=== PATIENT | female | born 1980 | race Caucasian/White ===

== ENCOUNTER 2020-06-26 15:11 | Outpatient (REF) | payer OTHER, SELFPAY | END 2020-06-26 15:12 | disposition home or self-care (01) | LOC: HO.LAB 15:11 | PROVIDERS: Visit Provider Internal Medicine | DX: Z20.828 Contact with and (suspected) exposure to other viral communicable diseases (principal) | CPT/HCPCS: C9803; U0003 ==

== ENCOUNTER 2021-06-11 | Outpatient (REF) | payer OTHER, SELFPAY | END 2021-06-11 00:01 | disposition home or self-care (01) | LOC: HO.LNP | PROVIDERS: Visit Provider Physician Assistant Medical | DX: Z20.822 Contact with and (suspected) exposure to COVID-19 (principal); J01.90 Acute sinusitis, unspecified; R42 Dizziness and giddiness | CPT/HCPCS: U0003; U0005 ==

== ENCOUNTER 2023-02-10 07:53 | Outpatient (REF) | payer OTHER, SELFPAY ==
[2023-02-10 11:41] LABS: MANUAL DIFF FLAG NO
[2023-02-10 11:58] LABS: Eosinophils Absolute Auto 0.1 X10*3/uL (0.0-0.4); Eosinophils Percent Auto 1.5 % (0-4); Hematocrit 34.8 % (37.0-47.0); Hemoglobin 11.5 g/dl (12.0-16.0); Lymphocytes Absolute Auto 1.5 X10*3/uL (1.2-4.9); Lymphocytes Percent Auto 36.1 % (20-40); Mean Corpuscular Hemoglobin 31.1 pg (27.0-33.0); Mean Corpuscular Volume 94.1 fL (80.0-98.0); Mean Platelet Volume 9.9 fL (9.4-12.3); Monocytes Absolute Auto 0.4 X10*3/uL (0.1-1.2); Monocytes Percent Auto 10.8 % (2-11); Neutrophils Absolute Auto 2.1 x10*3/uL (2.0-8.3); Neutrophils Percent Auto 50.6 % (45-73); Platelet Count 271 X10*3/uL (160-400); Red Cell Distribution Width 12.4 % (11.0-16.0); White Blood Count 4.1 X10*3/uL (4.8-10.8)
[2023-02-10 12:21] LABS: Anion Gap 14 (12-20); Blood Urea Nitrogen 14 mg/dL (9-16); Calcium 9.3 mg/dL (8.4-10.2); Carbon Dioxide 24 mmol/L (22-29); Chloride 106 mmol/L (96-108); Cholesterol 210 mg/dL; Estimated Glomerular Filt Rate > 60; Glucose Random 83 mg/dL (60-115); Sodium 140 mmol/L (135-145)
== END 2023-02-10 07:54 | disposition home or self-care (01) ==
LOC: HO.HMGCLDS 07:53
PROVIDERS: PCP Internal Medicine; Visit Provider Internal Medicine
DX: Z00.00 Encounter for general adult medical examination without abnormal findings (principal)
CPT/HCPCS: 36415; 80048; 82465; 85025

== ENCOUNTER 2023-04-29 16:49 | Outpatient (REF) | payer OTHER, SELFPAY ==
[2023-04-29 16:58] LABS: MANUAL DIFF FLAG NO
[2023-04-29 17:30] LABS: Basophils Percent Auto 0.7 % (0-2); Eosinophils Absolute Auto 0.1 X10*3/uL (0.0-0.4); Eosinophils Percent Auto 1.1 % (0-4); Hematocrit 33.7 % (37.0-47.0); Hemoglobin 11.7 g/dl (12.0-16.0); Imm Gran Abs Auto 0.02 X10*3/uL (0.00-0.03); Imm Gran Pct Auto 0.4 % (0.0-0.4); Lymphocytes Absolute Auto 1.9 X10*3/uL (1.2-4.9); Mean Corpuscular HGB Conc 34.7 g/dl (31.0-35.0); Mean Corpuscular Hemoglobin 31.7 pg (27.0-33.0); Mean Corpuscular Volume 91.3 fL (80.0-98.0); Mean Platelet Volume 9.6 fL (9.4-12.3); Monocytes Absolute Auto 0.5 X10*3/uL (0.1-1.2); Monocytes Percent Auto 8.5 % (2-11); Neutrophils Absolute Auto 2.9 x10*3/uL (2.0-8.3); Neutrophils Percent Auto 53.3 % (45-73); Platelet Count 255 X10*3/uL (160-400); Red Blood Count 3.69 X10*6/uL (4.20-5.50); Red Cell Distribution Width 11.6 % (11.0-16.0); White Blood Count 5.4 X10*3/uL (4.8-10.8)
[2023-04-29 18:08] LABS: Iron 88 mcg/dL (30-160); Percent Iron Saturation 34 % (15-50); Total Iron Binding Capacity 260 mcg/dL (228-428); Unsaturated Iron Binding 172 ug/dL
[2023-04-29 18:37] LABS: Vitamin B12 627 pg/mL (200-900)
== END 2023-04-29 16:50 | disposition home or self-care (01) ==
LOC: HO.LAB 16:49
PROVIDERS: PCP Internal Medicine; Visit Provider Internal Medicine
DX: D64.9 Anemia, unspecified (principal)
CPT/HCPCS: 36415; 82607; 83540; 85025

== ENCOUNTER 2023-09-20 07:23 | Outpatient (REF) | payer OTHER, SELFPAY ==
[2023-09-20 07:39] LABS: MANUAL DIFF FLAG NO
[2023-09-20 07:57] LABS: Eosinophils Absolute Auto 0.1 X10*3/uL (0.0-0.4); Eosinophils Percent Auto 1.5 % (0-4); Hematocrit 35.9 % (37.0-47.0); Hemoglobin 12.2 g/dl (12.0-16.0); Imm Gran Abs Auto 0.01 X10*3/uL (0.00-0.03); Imm Gran Pct Auto 0.3 % (0.0-0.4); Lymphocytes Absolute Auto 1.6 X10*3/uL (1.2-4.9); Lymphocytes Percent Auto 42.3 % (20-40); Mean Corpuscular Hemoglobin 30.6 pg (27.0-33.0); Mean Platelet Volume 8.8 fL (9.4-12.3); Monocytes Absolute Auto 0.4 X10*3/uL (0.1-1.2); Monocytes Percent Auto 9.5 % (2-11); Neutrophils Absolute Auto 1.8 x10*3/uL (2.0-8.3); Neutrophils Percent Auto 45.4 % (45-73); Platelet Count 256 X10*3/uL (160-400); Red Blood Count 3.99 X10*6/uL (4.20-5.50); Red Cell Distribution Width 12.2 % (11.0-16.0); White Blood Count 3.9 X10*3/uL (4.8-10.8)
[2023-09-20 08:24] LABS: Anion Gap 10 (12-20); Blood Urea Nitrogen 14 mg/dL (9-16); Calcium 9.3 mg/dL (8.4-10.2); Carbon Dioxide 28 mmol/L (22-29); Chloride 105 mmol/L (96-108); Cholesterol 209 mg/dL (<200); Estimated Glomerular Filt Rate > 60; Glucose Random 85 mg/dL (60-115); HDL Cholesterol 85 mg/dL (>40); LDL Cholesterol Calculated 118 mg/dL (<100); Potassium 4.1 mmol/L (3.3-5.1); Sodium 139 mmol/L (135-145); Triglycerides 33 mg/dL (<150)
== END 2023-09-20 07:24 | disposition home or self-care (01) ==
LOC: HO.LAB 07:23
PROVIDERS: PCP Internal Medicine; Visit Provider Internal Medicine
DX: D64.9 Anemia, unspecified (principal); E78.00 Pure hypercholesterolemia, unspecified
CPT/HCPCS: 36415; 80048; 80061; 85025

== ENCOUNTER 2023-12-02 12:10 | Outpatient (AMB) | payer OTHER, SELFPAY ==
--- NOTE | 2023-12-02 12:12 | MHC.OFFWIV ---
Intake Vital Signs 12/02/23 12:17 Height 5 ft 1 in Weight 165 lb BMI 31.2 BP 120/72 Blood Pressure Location Rt brachial Position Sitting Pulse 80 Pulse Source Pulse Oximeter Temp 98.2 F Temp Source Oral Pulse Oximetry (%) 97 Oxygen Delivery Method Room Air Intake Visit Reasons: EP UTI??? Intake Note: pt is here for possible uti Patient Tobacco Use Status: Never used Tobacco Allergies No Known Allergies Allergy (Verified 12/02/23 12:43) Medication List - Last Reconciled 12/02/23 by RED Robertson cetirizine (Zyrtec) 10 mg PO DAILY PRN sulfamethoxazole-trimethoprim 800-160 mg (Bactrim DS) 1 tab PO Q12H Do you need a note to return to daycare/school/sports/work: No HPI HPI Comments History of Present Illness Details Patient is a 43-year-old female in today for symptoms of urinary urgency and burning with urination x3 days. Patient states she has had urinary tract infections in the past and this feels similar. Patient also does get a the frequent use infections, states this does not feel similar. Does also have history of bacterial vaginosis, will obtain laboratory swab in office today. Patient's urinalysis negative for ketones. Patient does have increased frequency but also states she drinks plenty of water. Has not utilized any medication for relief. Does have suprapubic pain and tenderness. Denies fevers or chills. Denies flank pain. PFSH Social History Patient Tobacco Use Status: Never used Tobacco Review of Systems Const All systems reviewed & are unremarkable except as noted in HPI and below Denies chills and Denies fever(s) GI Denies diarrhea, Denies nausea and Denies vomiting Denies hematuria, Reports urinary urgency and Denies vaginal discharge Physical Exam Const Other: Appearance: Alert.? Oriented X3.? No acute distress.? Head: Normocephalic Respiratory: No respiratory distress.? Abdomen: Soft and nontender. Skin: Skin warm and dry.? Normal skin color.? Normal skin turgor.? Back: No midline tenderness, no C-spine tenderness, full range of motion, no CVA tenderness bilaterally Neuro: Oriented X 3.? Assessment & Plan Assessment & Plan (1) Burning with urination: Comment: Obtain urinalysis and BV swab in office. She will give Bactrim x3 days Code(s): R30.0 - Dysuria Plan: Take your medications as prescribed. If you were prescribed antibiotics today, it is important that you take your medication to their entirety, do not skip any doses, do not finish them early. Follow-up with your primary care provider this week. Return to the emergency department with new or worsening symptoms. Such as fevers, chills, chest pain, shortness of breath, nausea, vomiting, dizziness, headache, vision changes, lethargy In case of emergency call 911 Plan Will call patient with results. Orders: Orders SureSwab Bacterial Vaginosis Today R30.0 - Dysuria Medications: New sulfamethoxazole-trimethoprim 800-160 mg (Bactrim DS) 1 tab PO Q12H 6 tabs 0RF Coding Level of Care Code Est Pt Level 3 (10327) Diagnoses Burning with urination R30.0 Time Spent (min) 27
[2023-12-02 12:17] VITALS: BP 120/72; PULSE 80; TEMP 36.8; O2SAT 97; BMI 31.2
== END 2023-12-02 13:32 | disposition home or self-care (01) ==
PROVIDERS: PCP Internal Medicine; Visit Provider Nurse Practitioner Primary Care
DX: R30.0 Dysuria (principal)
CPT/HCPCS: 81003; 99213

== ENCOUNTER 2023-12-02 16:09 | Outpatient (REF) | payer OTHER, SELFPAY ==
[2023-12-03 10:25] LABS: Bacterial Vaginosis PCR NEGATIVE (Negative); Candida Group PCR NOT DETECTED (Not Detect); Candida glab krusei PCR NOT DETECTED (Not Detect); Trichomonas vaginalis PCR NOT DETECTED (Not Detect)
== END 2023-12-02 16:10 | disposition home or self-care (01) ==
LOC: HO.LNP 16:09
PROVIDERS: Visit Provider Nurse Practitioner Primary Care
DX: R30.0 Dysuria (principal)
CPT/HCPCS: 0352U; 81513

== ENCOUNTER 2024-06-15 16:27 | Outpatient (REF) | payer BC, SELFPAY ==
--- NOTE | ~2024-06-15 | XR_ITS ---
EXAMINATION: XR LUMBOSACRAL SPINE CLINICAL INFORMATION: LOW BACK PAIN--S/P FALL COMPARISON: None available. TECHNIQUE: Three views of the lumbosacral spine. FINDINGS: Mild levocurvature of the lumbar spine which may be positional. No acute fracture or subluxation. No loss of vertebral body or intervertebral disc. No concerning lytic or blastic osseous lesion. No abnormal soft tissue calcification. Moderate stool burden. XR/XR lumbar spine 2-3V IMPRESSION: 1. No acute fracture or subluxation. 2. Moderate stool burden. Electronically signed by: Darrell Fuentes MD 06/16/2024 09:57 AM [facility]
== END 2024-06-15 16:28 | disposition home or self-care (01) ==
LOC: HO.XRAY 16:27
PROVIDERS: PCP Internal Medicine; Visit Provider Internal Medicine
DX: M54.50 Low back pain, unspecified (principal); Z91.81 History of falling
CPT/HCPCS: 72100

== ENCOUNTER 2024-08-16 09:54 | Outpatient (AMB) | payer BC, SELFPAY ==
--- NOTE | 2024-08-16 09:58 | MHC.PC.OV ---
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 Allergies No Known Allergies Allergy (Verified 08/16/24 09:58) Medication List - Last Reconciled 08/16/24 by AILN Prather cetirizine (Zyrtec) 10 mg PO DAILY fluticasone propionate 50 mcg/actuation 1 spray intranasal BID Tobacco use date assessed: 08/16/24 Dental Screening Dental Screen Date: 08/16/24 Did you have a dental visit in the last 12 months?: Yes Did you have a dental problem in the last 6 months where you did not have access to dental care?: No Was dental information given to patient?: Patient has dentist HPI HPI Comments History of Present Illness Details This is a 43-year-old female with a past medical history of allergic rhinitis presenting to [facility]. She transferred from Dr. Pan. She has an 11-year-old daughter and a 14-year-old son. She is a teacher in [place]. She has no specific concerns today. I refilled her allergy medications. Patient says allergy symptoms are very well controlled on this regimen. She denies side effects. She has mammograms done at [facility]. Assistant Reading Teacher is also at [facility]. She has an exam in 01/30/2025. She has a history of right breast biopsy 2 years ago which was benign. She has annual skin exams at [facility]. No personal history of skin cancer. She is up-to-date with eye and dental exams. She is exercising and following a healthy diet. She occasionally has fatigue. She was having difficulty with sleep the week before her menstrual cycle. She started taking an stfc-tdd-lvlsvcl supplement that contains magnesium, and this is working well. She received the influenza vaccine at the pharmacy. She is due for tetanus immunization which was administered today. She will have fasting labs done at [facility] [place] [place]. ROS: Constitutional: No unexplained weight loss, fever, chills, fatigue or night sweats. Eyes: No vision changes, blurry vision, double vision, eye pain, eye redness, eye discharge. ENT: No hearing loss, sneezing, congestion, runny nose or sore throat. Respiratory: No shortness of breath, cough or sputum production. Cardiovascular: No chest pain, chest pressure or chest discomfort. No palpitations or pedal edema. Gastrointestinal: No anorexia, nausea, vomiting or diarrhea. No abdominal pain or blood in stool. Genitourinary: No dysuria, hematuria, urinary frequency. Neurologic: No headache, dizziness, syncope, unilateral weakness, ataxia, numbness or tingling in the extremities. Musculoskeletal: No muscle pain, back pain, joint pain or swelling. Hematologic/Lymphatics: No bleeding or bruising. No painful lymph nodes. Skin: No rash or itching. Endocrine: No cold or heat intolerance. No polyuria or polydipsia. Psychiatric: No depression or anxiety. No SI/HI. Physical exam: Constitutional: Alert, in no distress. Head: Normocephalic. Eyes: Pupils are equal, round and reactive to light. Extraocular muscles intact. Ear, Nose and Throat: Canals clear. TMs normal. Normal nasal mucosa. No nasal discharge. No oral lesions. Neck: Supple, Full range of motion. No lymphadenopathy. No palpable thyroid masses. Respiratory: Clear to auscultation. Cardiovascular: S1 S2 regular. No murmurs. Gastrointestinal: Abdomen soft, non-tender, non-distended. Normal bowel sounds. No palpable masses. Neurologic: No focal neurological deficits. Symmetric patellar reflexes. Moves all extremities spontaneously. Sensation intact bilaterally. Skin: No rashes or lesions. Musculoskeletal: No gross deformities. Normal range of motion. Extremities: Warm and well perfused. No clubbing, cyanosis or edema. 3+ peripheral pulses bilaterally. Psychiatric: Normal mood and affect [facility] Medical History (Updated 08/16/24 @ 11:11 by ALIN Prather) Burning with urination Routine physical examination Screening for cardiovascular condition Fatigue Surgical History (Updated 08/16/24 @ 11:11 by ALIN Prather) H/O right breast biopsy H/O oral surgery Family History (Updated 08/16/24 @ 10:07 by Nessa Muse CMA) Father Alcoholic Paternal Aunt No problems noted. Paternal Grandmother Breast cancer Maternal Aunt Breast cancer Maternal Uncle Lung cancer Other Substance abuse Social History (Updated 08/16/24 @ 10:05 by Nessa Muse CMA) Housing: House Alcohol intake: current Patient Tobacco Use Status: Never used Tobacco e-Cigarette/Vaping Use: Never Used Second Hand Smoke Exposure: No service: No Current occupational status: employed Current occupation: Teacher Current occupational exposures/hazards: No Cognitive needs: No Hearing needs: No Vision needs: No Questionnaire PHQ-9 Over the last 2 weeks, how often have you been bothered by any of the following problems? 1. Little interest or pleasure in doing things: not at all 2. Feeling down, depressed, or hopeless: not at all 3. Trouble falling or staying asleep, or sleeping too much: not at all 4. Feeling tired or having little energy: several days 5. Poor appetite or overeating: not at all 6. Feeling bad about yourself - or that you are a failure or have let yourself or your family down: not at all 7. Trouble concentrating on things, such as reading the newspaper or watching television: not at all 8. Moving or speaking so slowly that other people could have noticed. Or the opposite - being so fidgety or restless that you have been moving around a lot more than usual: not at all 9. Thoughts that you would be better off or of hurting yourself in some way: not at all Total score: 1 Depression Screening Interpretation: Negative Depression Screening Done: Yes 12239 - PHQ-9 Billing: Yes Source: Developed by Drs. Manolo Saenz, Josefa Wong, Al Marie and colleagues, with an educational italo from [employer]. Thrive Questionnaire Date Thrive assessed: 08/14/24 I am a: Patient What is your living situation today?: I have a steady place to live Within the past 12 months, did the food you bought not last and you didn't have the money to get more?: Never true Within the past 12 months, did you worry whether your food would run out before you got money to buy more?: Never true Do you have trouble paying for medicines?: No Do you have trouble getting transportation to medical appointments?: No Do you have trouble paying your heating and electricity bill?: No Do you have trouble taking care of your child, family member or friend?: No Do you have trouble with day-to-day activities such as bathing, preparing meals, shopping, managing finances, etc.?: No Are you currently unemployed and looking for a job?: No Are you interested in more education?: No Please select the resources that you would like help with: None Currently or been in a relationship where the following occur: No concerns reported THRIVE Score: 0 AUDIT C Alcohol Use Questionnaire (AUDIT-C) 1. How often do you have a drink containing alcohol?: Monthly or less 2. How many drinks containing alcohol do you have on a typical day when you are drinking?: 1 or 2 3. How often do you have six or more drinks on one occasion?: Less than monthly Total Score: 2 DEO-7 AMB Questionnaire DEO-7 Date DEO - 7 assessed: 08/16/24 Feeling nervous, anxious, or on edge: 1 = Several days Not being able to stop or control worryin = Not at all Worrying too much about different things: 0 = Not at all Trouble relaxin = Not at all Being so restless that it is hard to sit still: 0 = Not at all Becoming easily annoyed or irritable: 1 = Several days Feeling afraid as if something awful might happen: 0 = Not at all Total DEO-7 score (0-4 normal; 5-9 mild; 10-14 moderate; 15-21 severe): 2 Source: Developed by Drs. Manolo Saenz, Josefa Wong, Al Marie and colleagues, with an educational italo from [employer]. DEO-7 Assessment Billing DEO-7 Assessment Tool: DEO-7 Assessment 61156 Physical exam (Primary Care) Vital Signs: Last Vital Signs Pulse 81 08/16/24 10:11 BP 110/74 08/16/24 10:11 Pulse Ox 98 08/16/24 10:11 Oxygen Delivery Method Room Air 08/16/24 10:11 BMI result Body Mass Index 31.4 Tobacco/Smoking Status: Tobacco use Status Tobacco use date assessed 08/16/24 08/16/24 09:59 Patient Tobacco Use Status Never used Tobacco 08/16/24 10:05 e-Cigarette/Vaping Use Never Used 08/16/24 09:59 PHQ-9: PHQ-9 Score PHQ-9: Total score 1 08/16/24 11:11 Depression Screening Interpretation: Negative Thrive Assessment: Date of Thrive Assessment Date Thrive assessed 08/14/24 08/16/24 09:59 Currently or been in a relationship where the following occur: No concerns reported Coding Level of Care Code New Pt Prev Care 40-64y(28913) Diagnoses Routine physical examination Z00.00 Screening for cardiovascular condition Z13.6 Fatigue R53.83 Additional Codes DEO-7 Assessment Billing - DEO-7 Assessment Tool: DEO-7 Assessment 79629 ([id number]) PHQ-9 - 56621 - PHQ-9 Billing: Yes ([id number]) Assessment & Plan Assessment & Plan (1) Routine physical examination: Code(s): Z00.00 - Encounter for general adult medical examination without abnormal findings Category: Medical (2) Screening for cardiovascular condition: Code(s): Z13.6 - Encounter for screening for cardiovascular disorders Category: Medical (3) Fatigue: Code(s): R53.83 - Other fatigue Category: Medical Plan Patient is seen today for a routine physical. As part of this visit we reviewed the following issues, which are considered and essential part of preventative health in this age group: - Breast Cancer screening - Annual Recreation Therapy Aides Teacher exam - Blood pressure screening annually - Cholesterol screening - Osteoporosis prevention including calcium/vitamin D intake, weight bearing exercise & smoking cessation - Nutritional and exercise counseling - Counseling of injury prevention including fire prevention, smoke alarms and seat belt usage - Screening for depression - Prevention of and/or testing for infectious diseases - Education about skin cancer - Recommendations about immunizations - Recommendation of an eye exam - Screening for substance abuse Fatigue has improved since taking woxh-tei-lqowwsc supplement to improve sleep. We will check screening labs to be cautious. She has no red flag symptoms. She will follow up if this becomes worse. Follow up in 1 year for annual physical exam. Orders: Orders Vitamin B12 Today R53.83 - Other fatigue, Z00.00 - Encounter for general adult medical examination without abnormal findings, Z13.6 - Encounter for screening for cardiovascular disorders, Z91.89 - Other specified personal risk factors, not elsewhere classified Comprehensive Met. Panel Today R53.83 - Other fatigue, Z00.00 - Encounter for general adult medical examination without abnormal findings, Z13.6 - Encounter for screening for cardiovascular disorders Complete Blood Count Auto Diff Today R53.83 - Other fatigue, Z00.00 - Encounter for general adult medical examination without abnormal findings, Z13.6 - Encounter for screening for cardiovascular disorders IRON PROFILE Today R53.83 - Other fatigue, Z00.00 - Encounter for general adult medical examination without abnormal findings, Z13.6 - Encounter for screening for cardiovascular disorders Ferritin Today R53.83 - Other fatigue, Z00.00 - Encounter for general adult medical examination without abnormal findings, Z13.6 - Encounter for screening for cardiovascular disorders TDaP Immunization Today Z23 - Encounter for immunization Vitamin D 25-OH (D2 and D3) Today M85.80 - Other specified disorders of bone density and structure, unspecified site, R53.83 - Other fatigue, Z00.00 - Encounter for general adult medical examination without abnormal findings, Z13.6 - Encounter for screening for cardiovascular disorders TSH reflex Free T4 Today R53.83 - Other fatigue, Z00.00 - Encounter for general adult medical examination without abnormal findings, Z13.6 - Encounter for screening for cardiovascular disorders Lipid Panel Today R53.83 - Other fatigue, Z00.00 - Encounter for general adult medical examination without abnormal findings, Z13.6 - Encounter for screening for cardiovascular disorders Medications: New fluticasone propionate 50 mcg/actuation administer into each nostril 1 spray intranasal BID 16 grams 11RF Boostrix Tdap (diphth,pertus(acell),tetanus) 0.5 mL IM ONCE 0.5 mL 0RF NS Z23 - Encounter for immunization Changed From cetirizine (Zyrtec) 10 mg PO DAILY PRN To cetirizine (Zyrtec) 10 mg PO DAILY 90 tabs 3RF
[2024-08-16 10:11] VITALS: BP 110/74; PULSE 81; O2SAT 98; BMI 31.4
--- OUTSIDE RECORDS SUMMARY | 2024-08-16 10:26 | XMS_ITS | Data Portability ---
Author Organization [facility], Home Service Address [address] [place] [address] Assessment No assessment recorded. Plan of Treatment Reminders Order Date Submit Date Provider Last Modified By Organization Details Last Modified Time Details Appointments None recorded. Lab CMP, serum or plasma 2017 018 MAIK Not available 8 07:32:35 CBC 2017 018 MAIK Not available 8 07:32:35 varicella zoster virus IgG Ab, titer, serum 2017 018 MAIK Not available 8 07:32:35 measles igg Ab, titer, serum 2017 018 tbalicki Not available 8 08:21:51 rubella Ab, titer, serum 2017 018 tbalicki Not available 8 08:21:52 rubella igg Ab, titer, serum 2017 018 tbalicki Not available 8 08:21:52 Referral None recorded. Procedures None recorded. Surgeries None recorded. Imaging None recorded. Medication Orders None recorded. Patient TargetsNo targets recorded. Patient InstructionsNo instructions recorded. Reason for Referral None Reported. Results Created Date Observation Date Name Description Value Unit Range Abnormal Flag Note LastModifiedBy Organization Detail LastModifiedTime Result Notes None recorded. Problems No Known Problems Procedures Surgical History Date Name Laterality Status Provider Name and Address Organization Details Recorded Time 02/12/20 16 Date of Last Pap Smear completed Nu Thompson NP, [address] [place], [address], [facility] 02/24/2018 15:07:20 Oral surgery procedure completed Nu Thompson NP, [address] [facility], [place], [address], [facility] 02/24/2018 15:06:39 Imaging Results None recorded. Procedure Notes None recorded. Medical Equipment None Reported. Allergies No known drug allergies Medications Name Sig Start Date Stop Date Status Note LastModified by Organization Details LastModified Time fluconazole 150 mg tablet 2017 completed Not Available Not Available Not Available prednisone 20 mg tablet 2017 completed Not Available Not Available Not Available amoxicillin 875 mg tablet 2017 completed Not Available Not Available Not Available intrauterine device (IUD) active Not Available Not Available Not Available Advil active Not Available Not Availa ble Not Available Vitals Date Recorded Body weight Body mass index (BMI) Body height Heart rate Oxygen saturation Oxygen saturation in Arterial blood by Pulse oximetry Systolic blood pressure Diastolic blood pressure Provider Name and Address Organization Details Last Updated DateTime 8 69851.1 2 g 30 kg/m2 156.85 cm 77 /min 98 % 98 % 110 mm[Hg] 68 mm[Hg] Anne Canchola [facility] 8 14:59:51 Social History Question Answer Notes LastModified by Organizat ion Details LastModified Time Tobacco Smoking Status Never Smoker Anne Canchola [facility] 02/24/2018 15:00:05 What Was The Date Of Your Most Recent Tobacco Screening? 02/24/2018 Information n ot available 02/04/2019 Sex: Unknown Functional Status None recorded. Mental Status None recorded. Family History Relationship Description Onset Age of this Age Resolved Age Notes LastModified by Organization Details LastModified Time Mother George pugh Not available 2017 15:06:02 Medical History Condition Response Coronary Artery Disease N Gout N Kidney Stones N Blood Diseases N Hyperthyroidism N Blood Transfusion N Breast Cancer N Hypothyroidism N Lung Disease N Depression N COPD N Defects or Inherited Disease N Difficulty Swallowing N Anxiety Disorder Y Meniere's disease N Muscle, Joint, or Bone Problems Vision or Eye Problems N Arthritis N Mental Disorder N Cancer N Stroke N Varicosities N Bladder or Kidney Problems N High Cholesterol N Liver Disease N Fibromyalgia N Headaches Y Kidney Disease N Allergies/Hayfever Y Heart Problems N Hospitalizations N Thyroid Problems N GI Problems Y Eating Disorder N Skin Problems N Anemia Y Constipation N Mental Illness N Diabetes N Seizures/Epilepsy N Tuberculosis N Congestive Heart Failure (CHF) N Eczema N Abuse/Domestic Violence N Diverticulitis N Asthma N Reflux/GERD Y Hepatitis N Heart Disease N Pulmonary Embolism N Chronic Ear Infections N Hypertension N Chicken Pox Y Autism Spectrum Disorder (ASD) N Thrombophilias N Gynecological History Statement/Question Response HPV Vaccine N Date of Last Pap Smear 02/12/2016 Current Control Method IUD Age at Menarche 15 Age at First Child 30 LMP Approximate Obstetrics History GPAL:G 2 P 2 0 0 2 Type Value Full Term 2 Living 2 Total 2 Past Encounters Encounter ID Performer Location Encounter Start Date Encounter Closed Date Diagnosis/Indication Diagnosis SNOMED-CT Code Diagnosis ICD10 Code Diagnosis Note [id number] Nu Thompson NP, S [facility] [address] [facility] [address] 02/24/2018 14:47:05 02/27/2018 10:42:51 Adult health examination 368392115 Z00.00 Active or passive immunization 252143378 Z23 had tdap with last child , 9 yrs old Screening procedure 2012 5006 Z13.9 Body mass index 30+ - obesity 722847000 Z68.39 Discussed, to join weight watchers, continue exercise as tolerated Headache 92649895 R51 follow, prn zyrtec, [facility] Concerns Section Related Observation LastModified by Organization Detai ls LastModified Time None Recorded Concern Status LastModified by Organization Details LastModified Time None Recorded Advance Directives Directive None Recorded Payers Encounter Date Sequence Insurance Name Policy Number Policy Millard Covered Member ID Millard Member ID Guarantor Name 02/24/2018 1 [facility] [id number] Cammie Castillo [id number] Cammie Castillo Notes Date Note Type Note Provider Name a nd Address Organization Details Recorded Time 8 text/html Annual WellnessReported bypatient.Diet and Nutrition:healthy diet;high caloric intake; discussed diet improvement Fracture Risk:no history of fractures; no recent explained fracture; no sudden unexplained fractures; no previous musculoskeletal injuries Physical Activity:exercises on a regular basis; good physical condition; discussed exercise habits; Burke/ P90 X online Additional Lifestyle Factors:no tobacco use; drinks alcohol (mild-moderate) Depression Risk:never feels sad, empty, or tearful; no loss of interest in activities; no significant changes in weight; no sleep disturbances or insomnia; no agitation; no loss of energy; no feelings of worthlessness or guilt; no thoughts of suicide; no history of depression; no history of mood disorders Hearing:no loss of hearing Vision:no vision problems Nu Thompson NP, [address] [place] [address], [phone], [facility] 02/24/2018 16:02:07 OBGyn Episode No OBEpisode recorded.
== END 2024-08-16 11:07 | disposition home or self-care (01) ==
PROVIDERS: PCP Physician Assistant Medical; Visit Provider Physician Assistant Medical
DX: Z00.00 Encounter for general adult medical examination without abnormal findings (principal); Z13.6 Encounter for screening for cardiovascular disorders; R53.83 Other fatigue; Z23 Encounter for immunization

== ENCOUNTER → 2024-08-16 09:54 | Outpatient (BNVA) | payer BC, SELFPAY | PROVIDERS: PCP Physician Assistant Medical; Visit Provider Physician Assistant Medical | DX: Z00.00 Encounter for general adult medical examination without abnormal findings (principal); R53.83 Other fatigue; Z23 Encounter for immunization; Z91.89 Other specified personal risk factors, not elsewhere classified | CPT/HCPCS: 90471; 90715; 96127 ==

== ENCOUNTER 2024-08-28 07:21 | Outpatient (REF) | payer BC, SELFPAY ==
--- OUTSIDE RECORDS SUMMARY | 2024-08-28 07:22 | XMS_ITS | Data Portability ---
Author Organization [facility] Internal [facility], Home Service Address [address] [place] [address] Assessment No assessment recorded. Plan of Treatment [...] Smear completed Nu Thompson NP, S [address] [place], [address], [facility] 02/24/2018 15:07:20 Oral surgery procedure completed Nu Thompson NP, S [address] [facility], [place], [address], [facility] 02/24/2018 15:06:39 Imaging Results None recorded. Procedure [...] Address Organization Details Last Updated DateTime 8 67912.1 2 g 30 kg/m2 156.85 cm 77 /min 98 % 98 % 110 mm[Hg] 68 mm[Hg] Anne Canchola [facility] 8 14:59:51 Social History Question Answer Notes LastModified by Organizat ion Details LastModified Time Tobacco Smoking Status Never Smoker Anne Canchola [facility] 02/24/2018 15:00:05 What Was The Date Of Your Most Recent Tobacco Screening? 02/24/2018 Information n ot available 02/04/2019 Sex: Unknown Functional Status None recorded. Mental Status None recorded. Family History Relationship Description Onset Age of this Age Resolved Age Notes LastModified by Organization Details LastModified Time Mother Marjanoleskirstin pugh Not available 2017 15:06:02 Medical History Condition Response Coronary Artery Disease N Gout N Kidney Stones N Blood Diseases N Hyperthyroidism N Blood Transfusion N COPD N Depression N Anxiety Disorder Y Muscle, Joint, or Bone Problems Vision or Eye Problems N Arthritis N Mental Disorder N Cancer N Stroke N Varicosities N Fibromyalgia N Headaches Y Kidney Disease N Heart Problems N Hospitalizations N Eating Disorder N Skin Problems N Constipation N Tuberculosis N Asthma N Hepatitis N Pulmonary Embolism N Chronic Ear Infections N Chicken Pox Y Autism Spectrum Disorder (ASD) N Thrombophilias N Breast Cancer N Hypothyroidism N Lung Disease N Defects or Inherited Disease N Difficulty Swallowing N Meniere's disease N Bladder or Kidney Problems N High Cholesterol N Liver Disease N Allergies/Hayfever Y Thyroid Problems N GI Problems Y Anemia Y Mental Illness N Diabetes N Seizures/Epilepsy N Congestive Heart Failure (CHF) N Eczema N Diverticulitis N Abuse/Domestic Violence N Reflux/GERD Y Heart Disease N Hypertension N Gynecological History Statement/Question Response HPV Vaccine [...] Diagnosis Note [id number] Nu Thompson NP, S [facility] [address] [facility],[place] [address] 02/24/2018 14:47:05 02/27/2018 10:42:51 Adult health examination 411835910 Z00.00 Active or passive immunization 680884510 Z23 had tdap with last child , 9 yrs old Screening procedure 2012 5006 Z13.9 Body mass index 30+ - obesity 214601982 Z68.39 Discussed, to join weight watchers, continue exercise as tolerated Headache 17464752 R51 follow, prn zyrtec, [facility] Concerns Section Related Observation LastModified by Organization Detai ls LastModified Time None Recorded Concern Status LastModified by Organization Details LastModified Time None Recorded Advance Directives Directive None Recorded Payers Encounter Date Sequence Insurance Name Policy Number Policy Millard Covered Member ID Millard Member ID Guarantor Name 02/24/2018 1 [facility] [id number] Cammie Castillo [id number] 2 Cammie Castillo Notes Date Note Type [...] Vision:no vision problems Nu Thompson NP, S [address] [place] [address], [phone], [facility] 02/24/2018 16:02:07 OBGyn Episode No OBEpisode recorded.
[2024-08-28 07:39] LABS: MANUAL DIFF FLAG NO
[2024-08-28 08:08] LABS: Eosinophils Absolute Auto 0.1 X10*3/uL (0.0-0.4); Hematocrit 33.9 % (37.0-47.0); Hemoglobin 11.7 g/dl (12.0-16.0); Imm Gran Abs Auto 0.01 X10*3/uL (0.00-0.03); Imm Gran Pct Auto 0.3 % (0.0-0.4); Lymphocytes Absolute Auto 1.5 X10*3/uL (1.2-4.9); Lymphocytes Percent Auto 36.7 % (20-40); Mean Corpuscular HGB Conc 34.5 g/dl (31.0-35.0); Mean Corpuscular Hemoglobin 31.5 pg (27.0-33.0); Mean Corpuscular Volume 91.1 fL (80.0-98.0); Mean Platelet Volume 9.4 fL (9.4-12.3); Monocytes Absolute Auto 0.3 X10*3/uL (0.1-1.2); Monocytes Percent Auto 8.4 % (2-11); Neutrophils Percent Auto 51.6 % (45-73); Platelet Count 247 X10*3/uL (160-400); Red Blood Count 3.72 X10*6/uL (4.20-5.50); Red Cell Distribution Width 12.2 % (11.0-16.0)
[2024-08-28 08:50] LABS: Alanine Aminotransferase 25 U/L (0-31); Albumin Level 4.5 g/dL (3.5-5.0); Alkaline Phosphatase 51 U/L (39-117); Anion Gap 13 (12-20); Aspartate Amino Transferase 32 U/L (5-31); Bilirubin Total 0.3 mg/dL (0.0-1.0); Blood Urea Nitrogen 13 mg/dL (9-16); Calcium 9.2 mg/dL (8.4-10.2); Carbon Dioxide 26 mmol/L (22-29); Chloride 107 mmol/L (96-108); Cholesterol 229 mg/dL (<200); Estimated Glomerular Filt Rate > 60; Glucose Random 90 mg/dL (60-115); HDL Cholesterol 79 mg/dL (>40); Iron 62 mcg/dL (30-160); LDL Cholesterol Calculated 137 mg/dL (<100); Percent Iron Saturation 26 % (15-50); Potassium 4.1 mmol/L (3.3-5.1); Sodium 142 mmol/L (135-145); Total Iron Binding Capacity 241 mcg/dL (228-428); Total Protein 7.7 g/dL (6.5-8.0); Triglycerides 65 mg/dL (<150); Unsaturated Iron Binding 179 ug/dL
[2024-08-28 08:53] LABS: Ferritin 27 ng/mL (10-250); TSH reflex Free T4 2.28 uIU/mL (0.32-4.0)
[2024-08-28 08:55] LABS: Vitamin B12 599 pg/mL (200-900)
[2024-09-01 01:14] LABS: Vitamin D 25-OH, D2 <4 ng/mL; Vitamin D 25-OH, D3 51 ng/mL; Vitamin D 25-OH, Total 51 ng/mL (30-100)
== END 2024-08-28 07:22 | disposition home or self-care (01) ==
LOC: HO.LAB 07:21
PROVIDERS: PCP Physician Assistant Medical; Visit Provider Physician Assistant Medical
DX: Z00.00 Encounter for general adult medical examination without abnormal findings (principal); M85.80 Other specified disorders of bone density and structure, unspecified site; Z91.89 Other specified personal risk factors, not elsewhere classified; Z13.6 Encounter for screening for cardiovascular disorders; R53.83 Other fatigue
CPT/HCPCS: 36415; 80053; 80061; 82306; 82607; 82728; 83540; 84443; 85025

== ENCOUNTER 2024-10-11 16:23 | Outpatient (REF) | payer BC, SELFPAY ==
[2024-10-11 16:32] LABS: MANUAL DIFF FLAG NO
[2024-10-11 17:06] LABS: Basophils Absolute Auto 0.1 X10*3/uL (0.0-0.2); Basophils Percent Auto 0.9 % (0-2); Eosinophils Percent Auto 0.7 % (0-4); Hematocrit 34.5 % (37.0-47.0); Hemoglobin 11.7 g/dl (12.0-16.0); Imm Gran Abs Auto 0.01 X10*3/uL (0.00-0.03); Imm Gran Pct Auto 0.2 % (0.0-0.4); Lymphocytes Percent Auto 35.8 % (20-40); Mean Corpuscular HGB Conc 33.9 g/dl (31.0-35.0); Mean Corpuscular Volume 91.3 fL (80.0-98.0); Mean Platelet Volume 9.2 fL (9.4-12.3); Monocytes Absolute Auto 0.4 X10*3/uL (0.1-1.2); Monocytes Percent Auto 7.7 % (2-11); Neutrophils Absolute Auto 3.1 x10*3/uL (2.0-8.3); Neutrophils Percent Auto 54.7 % (45-73); Platelet Count 251 X10*3/uL (160-400); Red Blood Count 3.78 X10*6/uL (4.20-5.50); Red Cell Distribution Width 12.3 % (11.0-16.0); White Blood Count 5.6 X10*3/uL (4.8-10.8)
[2024-10-11 17:44] LABS: Alanine Aminotransferase 27 U/L (0-31); Iron 41 mcg/dL (30-160); Percent Iron Saturation 17 % (15-50); Total Iron Binding Capacity 248 mcg/dL (228-428); Unsaturated Iron Binding 207 ug/dL
--- OUTSIDE RECORDS SUMMARY | 2024-10-11 17:59 | XMS_ITS | Data Portability ---
Author Organization [facility] Internal [facility], Home Service Address [address] [place] [address] Assessment No assessment recorded. Plan of Treatment [...] Smear completed Nu Thompson NP, S [address] [place], [address], [facility] Internal [facility] 02/24/2018 15:07:20 Oral surgery procedure completed Nu Thompson NP, S [address] [facility], [place], [address], [facility] Internal [facility] 02/24/2018 15:06:39 Imaging Results None [...] Address Organization Details Last Updated DateTime 8 04522.1 2 g 30 kg/m2 156.85 cm 77 /min 98 % 98 % 110 mm[Hg] 68 mm[Hg] Anne Canchola [facility] 8 14:59:51 Social History Question Answer Notes LastModified by Organizat ion Details LastModified Time Tobacco Smoking Status Never Smoker Anne Canchola [facility] 02/24/2018 15:00:05 What Was The Date Of [...] Diagnosis Note 6547 Nu Thompson NP, S [facility] [address] [facility],[place] [address] 02/24/2018 14:47:05 02/27/2018 10:42:51 Adult health examination 959941318 Z00.00 Active or passive immunization 263259744 Z23 had tdap with last child , 9 yrs old Screening procedure 2012 5006 Z13.9 Body mass index 30+ - obesity 000920780 Z68.39 Discussed, to join weight watchers, continue exercise as tolerated Headache 05090388 R51 follow, prn zyrtec, [facility] Health Concerns Section Related Observation LastModified by Organization Detai ls LastModified Time None Recorded Concern Status LastModified by Organization Details LastModified Time None Recorded Advance Directives Directive None Recorded Payers Encounter Date Sequence Insurance Name Policy Number Policy Millard Covered Member ID Millard Member ID Guarantor Name 02/24/2018 1 [facility] [id number] Cammie Castillo [id number] 2 Cammie Castillo Notes Date Note Type [...] Vision:no vision problems Nu Thompson NP, S [address] [place] [address], [address], [facility] 02/24/2018 16:02:07 OBGyn Episode No OBEpisode recorded.
[2024-10-11 18:01] LABS: Aspartate Amino Transferase 32 U/L (5-31)
== END 2024-10-11 16:24 | disposition home or self-care (01) ==
LOC: HO.LAB 16:23
PROVIDERS: PCP Physician Assistant Medical; Visit Provider Physician Assistant Medical
DX: R79.89 Other specified abnormal findings of blood chemistry (principal)
CPT/HCPCS: 36415; 83540; 84450; 84460; 85025

== ENCOUNTER 2024-12-02 08:24 | Outpatient (REF) | payer BC, SELFPAY ==
--- NOTE | ~2024-12-02 | US_ITS ---
EXAMINATION: US ABDOMEN LIMITED WITH LIVER ELASTOGRAPHY HISTORY: R79.89 - Other specified abnormal findings of blood chemistry TECHNIQUE: Real-time grayscale ultrasound imaging of the right upper quadrant was performed and images were reviewed. COMPARISON: There are no prior studies for comparison. FINDINGS: Liver: The right lobe of the liver measures 15.3 cm in size. The left lobe of the liver measures 7.4 cm in size. The liver demonstrates normal homogeneous echotexture. No focal mass or intrahepatic biliary ductal dilatation is identified. There is normal hepatopedal flow in the portal vein. Ultrasound elastography of the liver was performed with 10 separate measurements of the liver parenchyma with the patient in the supine position. Measurements were obtained approximately 2 cm below Alexi's capsule and perpendicular to the capsule. Images are of satisfactory quality. The median shear wave velocity is 0.97 m/s. The interquartile range/median (IQR/median) is 0.13. Gallbladder and biliary tree: The gallbladder is unremarkable, without evidence of calculi, wall thickening, or pericholecystic fluid. There is no sonographic De Paz sign. The common bile duct is normal in caliber measuring 3 mm. Right Kidney: The right kidney measures 10.5 cm in length. The right kidney is unremarkable, without evidence of masses, hydronephrosis, or calculi. Pancreas: The pancreatic head, neck, and body are unremarkable. The pancreatic tail is obscured by bowel gas. Abdominal aorta and inferior vena cava: The visualized portions of the abdominal aorta and inferior vena cava are normal in caliber. There is no free fluid in the right upper quadrant. US/US abdomen donald w elastography IMPRESSION: Unremarkable right upper quadrant ultrasound. The median shear wave velocity in the liver is 0.97 m/s, corresponding to a median liver stiffness of 2.8 kPa. The IQR/median value is 0.13. This is indicative of a quality data set. Findings are indicative of a normal elastography value with a low likelihood of severe fibrosis or cirrhosis. REFERENCE: Society of Radiologists in Ultrasound Liver Stiffness Thresholds (2019): LIVER STIFFNESS THRESHOLDS: *Shear wave velocity less than 1.3 m/s (Liver Stiffness equal or less than 5 kPa): High probability of being normal. *Shear wave velocity less than 1.7 m/s (Liver Stiffness less than 9 kPa): In the absence of other known clinical signs, rules out compensated advanced chronic liver disease. *Shear wave velocity between 1.7-2.1 m/s (Liver Stiffness 9-13 kPa): Suggestive of compensated advanced chronic liver disease but need further test for confirmation. *Shear wave velocity between 2.1-2.4 m/s (Liver Stiffness 13-17 kPa): Rules in compensated advanced chronic liver disease. *Shear wave velocity greater than 2.4 m/s (Liver Stiffness over 17 kPa): Suggestive of clinically significant portal hypertension. QUALITY OF DATA SET: *IQR/Median value equal or less than 0.30 implies a quality data set. *IQR/Median value over 0.30 implies a poor quality data set. SIGNIFICANT CHANGE FROM PRIOR EXAM: Significant change if liver stiffness measurement is 10% or greater from prior exam. OTHER CONSIDERATIONS: The stage of liver fibrosis may be overestimated in the setting of acute hepatitis, liver inflammation, elevated liver function tests, hepatic vascular congestion, obstructive cholestasis, non-fasting state, and infiltrative diseases such as amyloidosis and lymphoma. In some patients with NAFLD, the liver stiffness thresholds for compensated advanced chronic liver disease may be lower. In causes other than viral hepatitis and NAFLD, liver stiffness thresholds are not well established. Electronically signed by: Manolo Gray MD 12/02/2024 08:55 AM EDT
--- OUTSIDE RECORDS SUMMARY | 2024-12-02 08:35 | XMS_ITS | Data Portability ---
Author Organization [facility] Internal [facility], Home Service Address [address] [place] [address] Assessment No assessment recorded. Plan of Treatment [...] Smear completed Nu Thompson NP, S [address] [place], [address], [facility] Internal Medicine 02/24/2018 15:07:20 Oral surgery procedure completed Nu Thompson NP, S [address] [facility], [place], [address], [facility] Internal [facility] 02/24/2018 15:06:39 Imaging Results None recorded. Procedure [...] Address Organization Details Last Updated DateTime 8 31298.1 2 g 30 kg/m2 156.85 cm 77 /min 98 % 98 % 110 mm[Hg] 68 mm[Hg] Anne Canchola [facility] 8 14:59:51 Social History Question Answer Notes LastModified by Organizat ion Details LastModified Time Tobacco Smoking Status Never Smoker Anne Canchola [facility] 02/24/2018 15:00:05 What Was The Date Of Your Most Recent Tobacco Screening? 02/24/2018 Information n ot available 02/04/2019 Sex: Unknown Functional Status None recorded. Mental Status None recorded. Family History Relationship Description Onset Age of this Age Resolved Age Notes LastModified by Organization Details LastModified Time Mother George pugh Not available 2017 15:06:02 Medical History Condition Response Coronary Artery Disease N Gout N Blood Diseases N Kidney Stones N Hyperthyroidism N Breast Cancer N Blood Transfusion N Hypothyroidism N Lung Disease N Depression [...] Code Diagnosis ICD10 Code Diagnosis Note 6547 DO [facility] [address] [facility],[place] [address] 02/24/2018 14:47:05 02/27/2018 10:42:51 Adult health examination 005639021 Z00.00 Active or passive immunization 307348472 Z23 had tdap with last child , 9 yrs old Screening procedure 2012 5006 Z13.9 Body mass index 30+ - obesity 358920426 Z68.39 Discussed, to join weight watchers, continue exercise as tolerated Headache 34742596 R51 follow, prn zyrtec, [facility] Health Concerns Section Related Observation LastModified by Organization Detai ls LastModified Time None Recorded Concern Status LastModified by Organization Details LastModified Time None Recorded Advance Directives Directive None Recorded Payers Encounter Date Sequence Insurance Name Policy Number Policy Millard Covered Member ID Millard Member ID Guarantor Name 02/24/2018 1 JANELLE [id number] Cammie Castillo [id number] 2 Cammie Castillo Notes Date Note Type [...] Vision:no vision problems Nu Thompson NP, S [address] [place] [address], [address], [facility] 02/24/2018 16:02:07 OBGyn Episode No OBEpisode recorded.
== END 2024-12-02 08:25 | disposition home or self-care (01) ==
LOC: HO.US 08:24
PROVIDERS: PCP Physician Assistant Medical; Visit Provider Physician Assistant Medical
DX: R79.89 Other specified abnormal findings of blood chemistry (principal)
CPT/HCPCS: 76705; 76981

== ENCOUNTER → 2024-12-02 08:26 | Outpatient (BNV) | payer BC, SELFPAY | PROVIDERS: PCP Physician Assistant Medical; Visit Provider Radiology Diagnostic Radiology | DX: R79.89 Other specified abnormal findings of blood chemistry (principal) | CPT/HCPCS: 76705; 76981 ==

== ENCOUNTER 2024-12-10 15:52 | Outpatient (REF) | payer BC, SELFPAY ==
--- OUTSIDE RECORDS SUMMARY | 2024-12-10 15:55 | XMS_ITS | Data Portability ---
Author Organization [facility] Internal [facility], Home Service Address [address] [place] [address] Assessment No assessment recorded. Plan of Treatment [...] Smear completed Nu Thompson NP, S [address] [place], [address], [facility] 02/24/2018 15:07:20 Oral surgery procedure completed Nu Thompson NP, S [address] [facility], [place], [address], [facility] Internal [facility] 02/24/2018 15:06:39 Imaging Results None recorded. Procedure [...] Address Organization Details Last Updated DateTime 8 75148.1 2 g 30 kg/m2 156.85 cm 77 /min 98 % 98 % 110 mm[Hg] 68 mm[Hg] Anne Canchola [facility] 8 14:59:51 Social History Question Answer Notes LastModified by Organizat ion Details LastModified Time Tobacco Smoking Status Never Smoker Anne Canchola [facility] 02/24/2018 15:00:05 What Was The Date Of [...] N Blood Transfusion N Breast Cancer N COPD N Depression N Lung Disease N Hypothyroidism N Defects or Inherited Disease N Difficulty Swallowing N Meniere's disease N Anxiety Disorder Y Muscle, Joint, or Bone Problems Vision or Eye Problems N Arthritis N Mental Disorder N Cancer N Varicosities N Stroke N Bladder or Kidney Problems N High Cholesterol N Liver Disease N Headaches Y Fibromyalgia N Kidney Disease N Allergies/Hayfever Y Heart Problems [...] 6547 DO [facility] [address] [facility],[place] [address] 02/24/2018 14:47:05 02/27/2018 10:42:51 Adult health examination 497695468 Z00.00 Active or passive immunization 205475801 Z23 had tdap with last child , 9 yrs old Screening procedure 2012 5006 Z13.9 Body mass index 30+ - obesity 480070935 Z68.39 Discussed, to join weight watchers, continue exercise as tolerated Headache 13780042 R51 follow, prn zyrtec, [facility] Health Concerns Section Related Observation LastModified by Organization Detai ls LastModified Time None Recorded Concern Status LastModified by Organization Details LastModified Time None Recorded Advance Directives Directive None Recorded Payers Encounter Date Sequence Insurance Name Policy Number Policy Millard Covered Member ID Millard Member ID Guarantor Name 02/24/2018 1 JANELLE [id number] Cammie Castillo [id number] 2 Cammie Castillo Notes Date Note Type [...] Vision:no vision problems Nu Thompson NP, S [address] [place] [address], [address], [facility] 02/24/2018 16:02:07 OBGyn Episode No OBEpisode recorded.
[2024-12-10 16:04] LABS: MANUAL DIFF FLAG NO
[2024-12-10 16:35] LABS: Basophils Absolute Auto 0.1 X10*3/uL (0.0-0.2); Basophils Percent Auto 0.9 % (0-2); Eosinophils Absolute Auto 0.1 X10*3/uL (0.0-0.4); Eosinophils Percent Auto 0.9 % (0-4); Hematocrit 33.4 % (37.0-47.0); Hemoglobin 11.5 g/dl (12.0-16.0); Imm Gran Abs Auto 0.01 X10*3/uL (0.00-0.03); Imm Gran Pct Auto 0.2 % (0.0-0.4); Lymphocytes Absolute Auto 1.9 X10*3/uL (1.2-4.9); Lymphocytes Percent Auto 33.9 % (20-40); Mean Corpuscular HGB Conc 34.4 g/dl (31.0-35.0); Mean Corpuscular Hemoglobin 31.3 pg (27.0-33.0); Mean Platelet Volume 9.1 fL (9.4-12.3); Monocytes Absolute Auto 0.4 X10*3/uL (0.1-1.2); Monocytes Percent Auto 7.7 % (2-11); Neutrophils Absolute Auto 3.1 x10*3/uL (2.0-8.3); Neutrophils Percent Auto 56.4 % (45-73); Platelet Count 238 X10*3/uL (160-400); Red Blood Count 3.67 X10*6/uL (4.20-5.50); Red Cell Distribution Width 11.9 % (11.0-16.0); White Blood Count 5.6 X10*3/uL (4.8-10.8)
[2024-12-10 16:54] LABS: Alanine Aminotransferase 32 U/L (0-31); Albumin Level 4.7 g/dL (3.5-5.0); Alkaline Phosphatase 52 U/L (39-117); Aspartate Amino Transferase 34 U/L (5-31); Bilirubin Direct < 0.2 mg/dL (0.0-0.5); Bilirubin Total 0.1 mg/dL (0.0-1.0); Iron 52 mcg/dL (30-160); Percent Iron Saturation 21 % (15-50); Total Iron Binding Capacity 251 mcg/dL (228-428); Total Protein 7.4 g/dL (6.5-8.0); Unsaturated Iron Binding 199 ug/dL
[2024-12-10 17:09] LABS: Ferritin 38 ng/mL (10-250)
[2024-12-10 17:40] LABS: Vitamin B12 688 pg/mL (200-900)
[2024-12-12 03:40] LABS: HBS Num1 > 1000.00 mIU/mL (0-7.99); HBc Num1 0.04 S/CO (0.00-0.79); HBsAGNum1 0.31 S/CO (0.00-0.99); Hepatitis A Antibody IgM 0.17 Index (0-0.79); Hepatitis B Core Antibody Nonreactive (Nonreactive); Hepatitis B Surface Antigen Negative (Negative); ~HepC Num1 0.23 S/CO (0.00-0.79); ~Hepatitis A Antibody IgM Nonreactive (Nonreactive); ~Hepatitis B Surface Antibody REACTIVE (Nonreactive); ~Hepatitis C Antibody Nonreactive (Nonreactive)
[2024-12-12 03:50] LABS: Hepatitis A Antibody IgM 0.18 Index (0-0.79); ~Hepatitis A Antibody IgM Nonreactive (Nonreactive)
== END 2024-12-10 15:53 | disposition home or self-care (01) ==
LOC: HO.LAB 15:52
PROVIDERS: PCP Physician Assistant Medical; Visit Provider Physician Assistant Medical
DX: R79.89 Other specified abnormal findings of blood chemistry (principal); Z91.89 Other specified personal risk factors, not elsewhere classified
CPT/HCPCS: 36415; 80076; 82607; 82728; 83540; 85025; 86704; 86706; 86709; 86803; 87340

== ENCOUNTER 2025-04-23 07:55 | Outpatient (REF) | payer BC, SELFPAY ==
[2025-04-23 08:02] LABS: MANUAL DIFF FLAG NO
[2025-04-23 08:19] LABS: Hematocrit 34.9 % (37.0-47.0); Hemoglobin 11.7 g/dl (12.0-16.0); Imm Gran Abs Auto 0.01 X10*3/uL (0.00-0.03); Imm Gran Pct Auto 0.2 % (0.0-0.4); Lymphocytes Absolute Auto 1.7 X10*3/uL (1.2-4.9); Mean Corpuscular HGB Conc 33.5 g/dl (31.0-35.0); Mean Corpuscular Hemoglobin 31.0 pg (27.0-33.0); Mean Corpuscular Volume 92.3 fL (80.0-98.0); NRBC Abs Auto 0.000 X10*3/uL (0.0-0.012); NRBC Pct Auto 0.0 /100WBC (0.0-0.2); Platelet Count 230 X10*3/uL (160-400); Red Blood Count 3.78 X10*6/uL (4.20-5.50); White Blood Count 4.6 X10*3/uL (4.8-10.8)
[2025-04-23 09:18] LABS: Alanine Aminotransferase 25 U/L (0-31); Amylase 41 U/L (28-100); Aspartate Amino Transferase 26 U/L (5-31); Iron 103 mcg/dL (30-160); Lipase 26 U/L (8-78); Percent Iron Saturation 45 % (15-50); Total Iron Binding Capacity 228 mcg/dL (228-428); Unsaturated Iron Binding 125 ug/dL
[2025-04-23 09:28] LABS: Ferritin 38 ng/mL (10-250)
== END 2025-04-23 07:56 | disposition home or self-care (01) ==
LOC: HO.LAB 07:55
PROVIDERS: PCP Physician Assistant Medical; Visit Provider Physician Assistant Medical
DX: R79.89 Other specified abnormal findings of blood chemistry (principal); D64.9 Anemia, unspecified
CPT/HCPCS: 36415; 82150; 82728; 83540; 83690; 84450; 84460; 85025